=== PATIENT | female | born 1970 | race Caucasian/White ===

== ENCOUNTER → 2022-01-20 | Outpatient (CLI) | payer BC ==
[~2022-01-20] MED LIST: AGM875T PO; ALPR.5T PO; CEFD300C3 PO; CPR500T PO; CTLP20T PO; ESTR1TAB24 PO; HYDR-757 PO; HYOS0.1217 PO; KETO10TA PO; MEDR2.5T6 PO; MELO15TA39 PO; NITR-65 PO; OXYC1TAB11 PO; OXYC1TAB87 PO; PHEN200T16 PO; TMSL.4C PO; TRAM50TA3 PO; TRM50T PO
--- NOTE | 2022-01-20 16:28 | Diagnostic Imaging Report ---
INDICATION: Nephrolithiasis. FINDINGS: The bowel gas pattern is nonspecific. There are questionable nonobstructing stones in the kidneys bilaterally. The osseous structures are unremarkable. IMPRESSION: Probable bilateral nephrolithiasis and a nonspecific bowel gas pattern. Dictated by: Dictated on workstation # [id number]
== END ==
LOC: MERGE 15:48 → RAD 15:48
PROVIDERS: ATTEND Urology
DX: N20.0 Calculus of kidney (principal)
CPT/HCPCS: 74018